=== PATIENT | female | born 1990 ===

== ENCOUNTER 2018-09-29 06:00 | Inpatient (IN) | payer OTHER ==
[2018-09-29] MEDS ORDERED: METHYLERGONOVINE MALEATE 0.2 MG/ML SOL IM PRN (08:38)
[2018-09-29] MEDS ORDERED: FENTANYL 100MCG/2ML SOL IV PRN (08:38)
[2018-09-29] MEDS ORDERED: LACTATED RINGERS 1,000 ML IV PRN (08:38)
[2018-09-29] MEDS ORDERED: MEPIVACAINE HCL 1% MPF 30 ML/VIAL SOL INFIL PRN (08:38)
[2018-09-29] MEDS ORDERED: OXYTOCIN 10000 MU/ML SOL IM PRN (08:38)
[2018-09-29] MEDS ORDERED: CARBOPROST 250 MCG/ML SOL IM PRN (08:38)
[2018-09-29] MEDS ORDERED: SODIUM CHLORIDE 0.9% FLUSH 10 ML SOL IV PRN (08:38)
[2018-09-29] MEDS: SODIUM CHLORIDE 0.9% FLUSH 10 ML SOL IV SCH ×2 (09:58→19:24)
[2018-09-29] MEDS ORDERED: TERBUTALINE SULFATE 1 MG/ML SOL SC PRN (13:06)
[2018-09-29] MEDS ORDERED: OXYTOCIN 10000 MU/ML 20,000 MU in LACTATED RINGERS 1,000 ML IV SCH (13:15)
[2018-09-29] MEDS ORDERED: LACTATED RINGERS 1,000 ML IV SCH (13:15)
[2018-09-29] MEDS ORDERED: TETRACAINE HCL 1% SOL IJ PRN ×2 (13:32→14:11)
[2018-09-29] MEDS ORDERED: LACTATED RINGERS 1,000 ML ONE (14:41)
[2018-09-29] MEDS ORDERED: OXYTOCIN 10000 MU/ML SOL ONE (14:41)
[2018-09-29] MEDS ORDERED: HYDROXYZINE HYDROCHLORIDE 25 MG/ML SOL IM PRN (17:36)
[2018-09-29] MEDS ORDERED: DIPHENHYDRAMINE 50 MG/ML SOL IM PRN (17:36)
[2018-09-29] MEDS ORDERED: DIPHENHYDRAMINE 25 MG CAP PO PRN (17:36)
[2018-09-29] MEDS ORDERED: NALOXONE HYDROCHLORIDE 0.4 MG/ML SOL IV PRN (17:36)
[2018-09-29] MEDS ORDERED: MORPHINE SULFATE 0.5 MG/ML SOL ONE (17:52)
[2018-09-29] MEDS: LACTATED RINGERS 1,000 ML IV SCH (19:23)
[2018-09-29] MEDS ORDERED: BENZOCAINE/MENTHOL 1 SPR TOP PRN (20:51)
[2018-09-29] MEDS ORDERED: FLEET ENEMA PR PRN (20:51)
[2018-09-29] MEDS ORDERED: METHYLERGONOVINE MALEATE 0.2 MG TAB PO PRN (20:51)
[2018-09-29] MEDS ORDERED: BISACODYL 10 MG SUP PR PRN (20:51)
[2018-09-29] MEDS ORDERED: TEMAZEPAM 15MG 15 MG CAP PO PRN (20:51)
[2018-09-29] MEDS ORDERED: APAP/HYDROCODONE 1 EACH TABLET PO PRN (20:51)
[2018-09-29] MEDS ORDERED: WITCH HAZEL 1 EA PAD TOP PRN (20:51)
[2018-09-29] MEDS: IBUPROFEN 600 MG TAB PO PRN (23:25)
[2018-09-30] MEDS: SODIUM CHLORIDE 0.9% FLUSH 10 ML SOL IV SCH ×2 (01:00→14:24)
[2018-09-30] MEDS: IBUPROFEN 600 MG TAB PO PRN ×2 (08:10→21:25)
[2018-09-30] MEDS: DOCUSATE SODIUM 100 MG SGL PO SCH ×2 (08:10→21:22)
[2018-09-30] MEDS: LACTATED RINGERS 1,000 ML IV SCH (14:25)
[2018-10-01 05:10] VITALS: BP 136/83; PULSE 85; RESP 12; TEMP 97.9; O2SAT 99
[2018-10-01] MEDS: DOCUSATE SODIUM 100 MG SGL PO SCH (12:46)
== END 2018-10-01 13:25 | disposition home or self-care (01) | DRG 807 ==
LOC: OBSVTOIN 06:00 → OB 06:00
PROVIDERS: ADMIT Family Medicine; ATTEND Family Medicine
PROC: 10D07Z6 Extraction of Products of Conception, Vacuum, Via Natural or Artificial Opening (ICD-10-PCS; principal; 2018-09-29)
PROC: 0U7C7ZZ Dilation of Cervix, Via Natural or Artificial Opening (ICD-10-PCS; 2018-09-29)
PROC: 3E033VJ Introduction of Other Hormone into Peripheral Vein, Percutaneous Approach (ICD-10-PCS; 2018-09-29)
PROC: 6A550ZT Pheresis of Cord Blood Stem Cells, Single (ICD-10-PCS; 2018-09-29)
PROC: 10907ZC Drainage of Amniotic Fluid, Therapeutic from Products of Conception, Via Natural or Artificial Opening (ICD-10-PCS; 2018-09-29)
PROC: 4A1H74Z Monitoring of Products of Conception, Cardiac Electrical Activity, Via Natural or Artificial Opening (ICD-10-PCS; 2018-09-29)
DX: O80 Encounter for full-term uncomplicated delivery (principal); Z37.0 Single live birth; O16.3 Unspecified maternal hypertension, third trimester; Z3A.38 38 weeks gestation of pregnancy
CPT/HCPCS: 36415; 59025; 85018; J2274; J2590; J3010; A9270-GY